=== PATIENT | male | born 1995 | race Caucasian/White ===

== ENCOUNTER 2024-12-14 21:07 | Emergency (ER) | payer SELFPAY ==
[2024-12-14 21:15] VITALS: BP 151/93
[2024-12-14 21:48] LABS: Hematocrit 40.6 % (39.0-52.0); Hemoglobin 14.1 g/dL (13.0-18.0); Mean Corp Hgb Conc. 34.7 g/dL (33.0-37.0); Mean Corpuscular Volume 80.4 fL (80.0-94.0); Nucleated Red Blood Cells % 0 % (-); Platelet Count 206 10^3/uL (130-400); Red Cell Dist. Width 13.8 % (11.5-14.5)
[2024-12-14 22:04] LABS: ALT (SGPT) 34 U/L (0-50); AST (SGOT) 42 U/L (17-59); Albumin 4.5 g/dl (3.5-5.0); Alkaline Phosphatase 98 U/L (38-126); Blood Urea Nitrogen 10 mg/dl (9-20); Calcium 9.0 mg/dl (8.4-10.2); Carbon Dioxide 23 mmol/L (22-30); Chloride 98 mmol/L (98-107); Glucose 135 mg/dl (70-99); Potassium 3.7 mmol/L (3.5-5.1); Sodium 133 mmol/L (135-145); Total Protein 7.6 g/dl (6.3-8.2); eGFR > 60.00
[2024-12-14 22:15] LABS: COVID-19 Antigen Negative (Negative)
[2024-12-15 02:00] VITALS: BP 126/57
[2024-12-15 02:02] VITALS: BP 126/57; BMI 26.8
[2024-12-15 03:00] VITALS: BP 112/93
[2024-12-15 04:00] VITALS: BP 110/59
[2024-12-15 05:00] VITALS: BP 124/79
[2024-12-15] MEDS: PERCOCET 5/325 1 TABLET PO (05:33)
--- NOTE | 2024-12-15 05:43 | ED.GENMED ---
History of Present Illness
General
Chief Complaint: Musculo-Skeletal Complaint
Source: patient
Exam Limitations: none
Time Seen by Provider: 12/15/24 02:11
Nursing documentation reviewed up to this point in time: agreed with
History of Present Illness
History of Present Illness:
Patient presents to ED secondary to worsening lower back pain over the past 3 days, along with persistent cough, low-grade fever, and decreased appetite over the past 7 days. Patient states that his symptoms all started when he started cleaning out
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 Denies sore throat. Denies nausea, vomiting, or diarrhea. Denies headache. Denies blurred vision. Denies neck pain. Denies urinary or
bowel incontinence. Denies loss of sensation or weakness. Patient does have history of scoliosis and has had lower back pain intermittently over the years, but never this severe. Patient has taken Tylenol at home without improvement symptoms.
Past History
Past History
ED Past Medical History: Other
ED Past Surgical History: None
Social History
Tobacco: Smoker
Alcohol: Occasional
Drug: Marijuana
Personal:
Living: with family
Family History
Family History: Negative Diabetes, Hypertension or CAD
Review of Systems
Review of Systems
Allergies reviewed?: Yes
All Other Systems: ROS reviewed and negative except as documented in HPI and ROS
Constitutional: Reports fever
Respiratory: Reports no symptoms
Cardiac: Reports no symptoms
ABD/GI: Reports no symptoms
: Denies incontinence
Musculoskeletal: Reports back pain; Denies neck pain
Skin: Reports no symptoms
Neurological: Reports no symptoms; Denies weakness or numbness
Phy Exam
Physical Exam
Physical Exam:
Physical Exam
General: mild painful distress, not acutely ill. afebrile
Head: nc/at. eomi
Neck: supple. normal range of motion.
Heart: s1/s2 regular rate and rhythm
Lungs: no acute respiratory distress. clear bilaterally
Abdomen: normal bowel sounds. not tender.
Back: no midline tenderness to palpation. mild diffuse lower back tenderness to palpation, at level of L4-5, without ecchymosis/swelling
Neuro: alert and oriented x 3. no focal neurological deficits
Skin: no rash
Psychiatric: well kept. interactive and cooperative
Extremities: no edema. no calf tenderness.
Course
Orders/Labs/Results
Orders:
Orders
12/14/24 21:33
COVID-19 Antigen Urgent
Source: Nasal Swab
Influenza A+B Rapid Molecular Urgent
DONALD Source: Nasal Swab
Specimen Description:
12/14/24 21:37
Complete Blood Count/With Diff Urgent
Comprehensive Metabolic Panel Urgent
12/15/24 05:01
Dexamethasone Sod Phosphate [Decadron] 10 mg IV NOW STA
Ketorolac [Toradol] 30 mg IV NOW STA
Oxycodone/Acetaminophen [Percocet 5/325] 1 tablet PO NOW STA
CR Lumbar Spine Comp Min 4 Vw* Urgent
Comment:
Reason For Exam: lower back pain
12/15/24 05:02
CR Chest - 2 Views Urgent
Comment:
Reason For Exam: fever/cough
12/15/24 05:03
0.9% Sodium Chloride 1000 ml [Nss] 1,000 ml IV BOLUS
Abnormal Lab Results
12/14/24
21:37
WBC 11.0 H 10^3/uL
(4.8-10.8)
MPV 10.6 H fL
(7.4-10.4)
Absolute Neuts (auto) 8.2 H 10^3/uL
(1.4-6.5)
Absolute Monos (auto) 1.4 H 10^3/uL
(0.1-0.6)
Lymphocytes % 11.5 L %
(20.5-51.1)
Monocytes % 12.4 H %
(1.7-9.3)
Sodium 133 L mmol/L
(135-145)
Glucose 135 H mg/dl
(70-99)
12/14/24 21:37
12/14/24 21:37
Vital Signs
Initial and Last Documented VS:
Initial Vital Signs
Temp Pulse Resp BP Pulse Ox
100.5 F H 116 18 151/93 97
12/14/24 21:15 12/14/24 21:15 12/14/24 21:15 12/14/24 21:15 12/14/24 21:15
Last Documented Vital Signs
Temp Pulse Resp BP Pulse Ox
99.6 F 78 16 113/93 96
12/15/24 06:01 12/15/24 02:02 12/15/24 02:02 12/15/24 06:00 12/15/24 06:00
MDM/Problems Addressed
MDM/Problems Addressed:
Chest x-ray and lumbar x-ray without acute findings on my preliminary reading. Otherwise, patient reports improvement after treatment, ambulates neurologically intact. As such, patient will be discharged home in stable condition, with course of
Z-Isaac, for potential bronchitis, as patient is a smoker. Patient does not have exam findings concerning for cauda equina syndrome. Return cautions provided.
As patient currently does not have primary care physician, patient agreeable to follow-up with family practice medicine clinic for ongoing primary care. Referral placed to residency clinic via [facility] text. Patient advised to return to ED with
worsening symptoms
*Pulse Oximetry
SaO2: 96
Oxygen Mode of Delivery: Room air
Patient hypoxic: no
*Critical Care Note
Total Time (30-74mins, 75-104mins- exclusive of procedures): Not Applicable
ED Attending Note
-
Portions of this chart may have been created with voice recognition software.� Occasional wrong word or��sound alike� substitutions may have occurred due to the inherent limitations of voice recognition software.
Discharge Plan
Departure
Patient Disposition: Home (Routine Discharge)
Date of Disposition: 12/15/24
Time of Disposition: 06:35
Patient with high blood pressure during this ER visit?: Yes
Condition: Good
Discharge Problem:
Back pain, Acute bronchitis
Instructions: Acute bronchitis in adults, Back Pain
Prescriptions:
New
azithromycin [Zithromax Z-Isaac] 250 mg tablet
250 mg PO DAILY 6 Days Qty: 6 0RF
Referrals:
Family Residency Program [Provider Group]
NONE,* [Family Provider, Internal Medicine]
Activity Restrictions/Additional Instructions:
As discussed, please follow-up with referred [facility] family practice residency clinic for reevaluation. Please consider return to ED with worsening symptoms, i.e. fever/worsening shortness of breath/vomiting/urinary or bowel
incontinence/weakness.
Interventions
Interventions:
*Risk Screen - Suicide Last Done: 12/15/24 01:55
*General Assessment Last Done: 12/15/24 01:55
*Neglect/Abuse Screening Last Done: 12/15/24 01:55
*ED- Fall Risk Assessment Last Done: 12/15/24 09:14
*ED COVID-19 Vaccine History Last Done: 12/15/24 01:55
*Nursing Disposition Last Done: 12/15/24 09:14
ED-Musculoskeletal Assessment Last Done: 12/15/24 02:00
Discharge Date and Time
Discharge Date/Time: 12/15/24 09:15
Print Language: LUX[place]
[2024-12-15] MEDS: NSS 1000 IV (05:51)
[2024-12-15] MEDS: DECADRON 10 MG IV (05:52)
[2024-12-15] MEDS: TORADOL 30 MG IV (05:52)
[2024-12-15 06:00] VITALS: BP 113/93
== END 2024-12-15 09:15 | disposition home or self-care (01) ==
LOC: EMR 21:07
PROVIDERS: Emergency Medicine; EMERGENCY PHYSICIAN Emergency Medicine
DX: M54.50 Low back pain, unspecified (principal); J20.9 Acute bronchitis, unspecified; R03.0 Elevated blood-pressure reading, without diagnosis of hypertension; M41.9 Scoliosis, unspecified; F17.200 Nicotine dependence, unspecified, uncomplicated
CPT/HCPCS: 99284; 96374; 96375; 96361; 71046; 72110; 80053; 85025; 87502; 87811

== ENCOUNTER 2025-03-17 13:28 | Emergency (ER) | payer MEDICAID, SELFPAY ==
[2025-03-17 13:38] VITALS: BP 150/109
[2025-03-17 13:53] VITALS: BMI 25.1
[2025-03-17 14:05] LABS: Urine Character Clear (Clear)
[2025-03-17 14:09] LABS: Hematocrit 46.3 % (39.0-52.0); Hemoglobin 16.1 g/dL (13.0-18.0); Mean Corp Hgb Conc. 34.8 g/dL (33.0-37.0); Mean Corpuscular Volume 82.4 fL (80.0-94.0); Platelet Count 259 10^3/uL (130-400); Red Cell Dist. Width 13.7 % (11.5-14.5)
[2025-03-17 14:12] LABS: Urine Squamous Cell 0-2 /LPF (Few)
[2025-03-17 14:13] LABS: Urine Red Blood Cell 0-2 /HPF (0-2)
[2025-03-17 14:20] LABS: ALT (SGPT) 19 U/L (0-50); AST (SGOT) 22 U/L (17-59); Albumin 5.5 g/dl (3.5-5.0); Alkaline Phosphatase 102 U/L (38-126); Blood Urea Nitrogen 15 mg/dl (9-20); Calcium 10.3 mg/dl (8.4-10.2); Carbon Dioxide 23 mmol/L (22-30); Chloride 98 mmol/L (98-107); Estimated Creatinine Clearance > 125 ml/min; Glucose 98 mg/dl (70-99); Potassium 4.1 mmol/L (3.5-5.1); Sodium 135 mmol/L (135-145); Total Protein 8.7 g/dl (6.3-8.2); eGFR > 60.00
--- NOTE | 2025-03-17 14:33 | ED.GENMED ---
History of Present Illness
General
Chief Complaint: Crisis Evaluation
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
Time Seen by Provider: 03/17/25 14:25
History of Present Illness
History of Present Illness:
Patient brought in for psychiatric evaluation. Apparently at the referral of [facility]. Used meth last night. Denies acute suicidal plan or intent but did state he took the meth amphetamine to hurt himself last night. Denies acute medical
issues. Chronic left shoulder pain. Chronic abdominal pain. These are all stable per the patient
Past History
Past History
ED Past Medical History: Psychiatric and Other (Crohn's disease)
ED Past Surgical History: None, Orthopedic and Other (Dental surgery)
Social History
Tobacco: Smoker
Alcohol: Occasional
Drug: Marijuana
Personal:
Living: with family
Family History
Family History: Negative Diabetes, Hypertension or CAD
Review of Systems
Review of Systems
All Other Systems: Not applicable
Constitutional: Denies fever or chills
Respiratory: Reports no symptoms
Cardiac: Reports no symptoms
Phy Exam
Physical Exam
Physical Exam:
GENERAL: Initially sleeping but easily arousable. Cooperative. Following commands.
EYE: Orbits normal.
NECK: Supple, no significant adenopathy.
CARDIAC: Regular rate and rhythm without any obvious murmurs.
LUNGS: Clear breath sounds,normal
ABDOMEN: Soft, without focal tenderness or distention
NEUROLOGICAL: Alert and oriented , grossly non-focal
SKIN: Warm and dry, no rash or lesion, no discoloration, skin intact.
MUSCULOSKELETAL: Some pain with motion of the left shoulder. No erythema or warmth. Good distal pulses and color
PSYCH: Normal and appropriate interaction.
Course
Orders/Labs/Results
Orders:
Orders
03/17/25 13:51
1:1 Observation - Suicide/ Violent Behavior As Directed
Crisis Consult Urgent
Reason for Consult: SI
03/17/25 13:57
CMP [Comprehensive Metabolic Panel] Urgent
Complete Blood Count/No Diff Urgent
Fentanyl, Urine Urgent
Urinalysis Reflex To Culture Urgent
Date Specimen was Collected: 03/17/25
Time Specimen was Collected: 13:55
Urine Drug Abuse Screen Urgent
Date Specimen was Collected: 03/17/25
Time Specimen was Collected: 13:55
Urine Microscopic Reflex Cult Urgent
Urine Culture Urgent
DONALD Source: U
Specimen Description:
Date Specimen was Collected: 03/17/25
Time Specimen was Collected: 13:55
03/17/25 14:31
Ibuprofen [Motrin] 600 mg PO NOW STA
Abnormal Lab Results
03/17/25
13:57
WBC 14.4 H 10^3/uL
(4.8-10.8)
MPV 11.1 H fL
(7.4-10.4)
Calcium 10.3 H mg/dl
(8.4-10.2)
Total Protein 8.7 H g/dl
(6.3-8.2)
Albumin 5.5 H g/dl
(3.5-5.0)
Urine Ketones 3+ A
(Negative)
Urine Urobilinogen 2+ A
(Neg - 1+)
Leukocyte Esterase Rfl 1+ A
(Negative)
Urine Bacteria (Reflex) Many A
(Negative)
Urine Albumin (Reflex) 2+ A
(Neg - Trace)
Ur Amphetamines Screen Positive H
(Negative)
U Methamphetamines Scrn Positive H
(Negative)
Urine Cocaine Screen Positive H
(Negative)
U Marijuana (THC) Screen Positive H
(Negative)
03/17/25 13:57
03/17/25 13:57
Vital Signs
Initial and Last Documented VS:
Initial Vital Signs
Temp Pulse Resp BP Pulse Ox
98.9 F 76 20 150/109 95
03/17/25 13:38 03/17/25 13:38 03/17/25 13:38 03/17/25 13:38 03/17/25 13:38
Last Documented Vital Signs
Temp Pulse Resp BP Pulse Ox
98.9 F 76 20 150/109 95
03/17/25 13:38 03/17/25 13:38 03/17/25 13:38 03/17/25 13:38 03/17/25 14:36
MDM/Problems Addressed
Differential Diagnosis Includes:
Patient medically has a leukocytosis. Likely reactive. Nothing to do clinically to support any acute infectious issue. Medically stable. Took amphetamine last night which he uses occasionally. States he did it to hurt himself although currently
has no plan or intent. Admits to chronically feeling depressed and suicidal. Will be evaluated by crisis. I do not feel strongly about a psychiatric committal given no current plan or intent.
*Pulse Oximetry
SaO2: 95
Oxygen Mode of Delivery: Room air
Patient hypoxic: no
*Critical Care Note
Total Time (30-74mins, 75-104mins- exclusive of procedures): Not Applicable
Data Reviewed
Review of Other/Old Records Reveals: Labs, Records and Testing
Update Note
Update Note:
Urinalysis positive. Leukocytosis likely reactive. Nothing to support an infectious issue. Patient accepted psychiatrically. No acute medical findings
ED Attending Note
-
Portions of this chart may have been created with voice recognition software.� Occasional wrong word or��sound alike� substitutions may have occurred due to the inherent limitations of voice recognition software.
Discharge Plan
Departure
Patient Disposition: Psych Facility
Date of Disposition: 03/17/25
Time of Disposition: 17:39
Discharge Problem:
Depression, Multidrug use
Prescriptions:
No Action
azithromycin [Zithromax Z-Isaac] 250 mg tablet
250 mg PO DAILY 6 Days Qty: 6 0RF
Referrals:
UNKNOWN - PT DOES,NOT KNOW [Family Provider]
Interventions
Interventions:
*General Assessment Last Done: 03/17/25 13:42
*Neglect/Abuse Screening Last Done: 03/17/25 13:42
*ED COVID-19 Vaccine History Last Done: 03/17/25 13:42
*ED Influenza Vaccine History Last Done: 03/17/25 13:42
[facility] Fall Risk Assessment Tool Last Done: 03/17/25 13:45
*Risk Screen - Suicide (C-SSRS) Last Done: 03/17/25 13:42
*Nursing Disposition Last Done: 03/17/25 19:15
ED-Psychological Assessment Last Done: 03/17/25 13:45
Discharge Date and Time
Discharge Date/Time: 03/17/25 19:15
Print Language: MALIAN
[2025-03-17] MEDS: MOTRIN 600 MG PO (15:41)
== END 2025-03-17 19:15 ==
LOC: EMR 13:28
PROVIDERS: EMERGENCY PHYSICIAN Emergency Medicine
DX: T14.91XA Suicide attempt, initial encounter (principal); G89.29 Other chronic pain; F19.10 Other psychoactive substance abuse, uncomplicated; F17.200 Nicotine dependence, unspecified, uncomplicated; F32.A Depression, unspecified; T43.652A Poisoning by methamphetamines intentional self-harm, initial encounter
CPT/HCPCS: 99285; 80053; 80306; 80307; 81003; 81015; 85027; 87086